=== PATIENT | male | born 1995 | race Hispanic/Latino ===

== ENCOUNTER 2018-09-01 15:55 | Emergency (ER) | payer BC ==
--- NOTE | 2018-09-01 16:33 | ER ---
Nurse's Notes [facility] Name: Jay Coyle Jr Age: 23 yrs Sex: Male : 1995 Arrival Date: 09/01/2018 Time: 15:57 Bed Treatment Private MD: Diagnosis: Asthma;Bronchitis, not specified as acute or chronic Presentation: 09/01 16:12 Presenting complaint: Malaise, nonproductive cough, sinus congestion, and mild SOB x 1 hb week. Denies fever/pain/N/V. Transition of care: patient was not received from another setting of care. Onset of symptoms was August 25, 2018. Risk Assessment: Do you want to hurt yourself or someone else? Patient reports no desire to harm self or others. Care prior to arrival: None. 16:12 Method Of Arrival: Ambulatory hb 16:12 Acuity: NATASHA 4 hb 16:30 Initial Sepsis Screen: Does the patient meet any 2 criteria? No. Patient's initial mg2 sepsis screen is negative. Does the patient have a suspected source of infection? No. Patient's initial sepsis screen is negative. Historical: - Allergies: 16:13 No Known Allergies; hb - Home Meds: 16:13 None [Active]; hb - PMHx: 16:13 None; hb - PSHx: 16:13 None; hb - Immunization history:: Adult Immunizations up to date. - Social history:: Smoking status: Patient/guardian denies using tobacco. - Ebola Screening: : No symptoms or risks identified at this time. Screenin:29 Abuse screen: Denies threats or abuse. Denies injuries from another. Nutritional mg2 screening: No deficits noted. Tuberculosis screening: No symptoms or risk factors identified. Fall Risk None identified. Assessment: 16:28 General: Appears in no apparent distress. comfortable, Behavior is calm, cooperative. mg2 Pain: Denies pain. Neuro: Level of Consciousness is awake, alert, obeys commands, Oriented to person, place, time, situation. Cardiovascular: Capillary refill < 3 seconds Patient's skin is warm and dry. Respiratory: Reports cough that is productive, persistent since 1 week ago Airway is patent Respiratory effort is even, unlabored, Respiratory pattern is regular, symmetrical, Breath sounds are clear bilaterally. in right upper lobe, left upper lobe, left posterior upper lobe, right posterior upper lobe, left posterior lower lobe, right posterior middle lobe and right posterior lower lobe. GI: No signs and/or symptoms were reported involving the gastrointestinal system. : No signs and/or symptoms were reported regarding the genitourinary system. EENT: Throat is clear. Derm: Skin is intact, is healthy with good turgor, Skin is pink, warm \T\ dry. normal. Musculoskeletal: Circulation, motion, and sensation intact. Capillary refill < 3 seconds. 16:53 Reassessment: patient for discharge after the nebulzation. mg2 Vital Signs: 16:13 BP 130 / 77; Pulse 88; Resp 16; Temp 98.1; Pulse Ox 100% on R/A; Weight 102.06 kg; hb Height 6 ft. 1 in. (185.42 cm); Pain 0/10; 17:00 BP 125 / 78; Pulse 90; Resp 18; Pulse Ox 100% on R/A; Pain 0/10; mg2 16:13 Body Mass Index 29.68 (102.06 kg, 185.42 cm) hb ED Course: 15:57 Patient arrived in ED. as 16:12 Triage completed. hb 16:13 Arm band placed on left wrist. hb 16:19 Laura Gale, RN is Primary Nurse. aa5 16:21 Veronica Green FNP-C is PHCP. snw 16:21 Alexander Batres MD is Attending Physician. snw 16:29 No provider procedures requiring assistance completed. Patient did not have IV access mg2 during this emergency room visit. 16:30 Patient has correct armband on for positive identification. mg2 Administered Medications: 16:53 Drug: predniSONE 40 mg Route: PO; mg2 17:08 Follow up: Response: No adverse reaction; Medication administered at discharge. mg2 16:53 Drug: Pepcid 20 mg Route: PO; mg2 17:08 Follow up: Response: No adverse reaction; Medication administered at discharge. mg2 16:53 Drug: Albuterol 2.5 mg Route: Inhalation; mg2 17:08 Follow up: Response: No adverse reaction; Medication administered at discharge. mg2 Outcome: 16:33 Discharge ordered by . snw 17:08 Discharged to home ambulatory, with family. mg2 17:08 Condition: stable 17:08 Discharge instructions given to patient, family, Instructed on discharge instructions, follow up and referral plans. medication usage, Demonstrated understanding of instructions, follow-up care, medications, Prescriptions given X 2. 17:09 Patient left the ED. mg2 Signatures: Veronica Green, PEOPLESOFT PROGRAMMER-C PEOPLESOFT PROGRAMMER-Edelmira Presley Audri, RN RN aa5 Josette Demarco, FLO RN Dell Bland RN RN mg2
--- NOTE | 2018-09-01 16:33 | EDPHYS ---
Physician Documentation [facility] Name: Jay Coyle Jr Age: 23 yrs Sex: Male : 1995 Arrival Date: 09/01/2018 Time: 15:57 Bed Treatment Private MD: ED Physician Alexander Batres HPI: 09/01 16:36 This 23 yrs old Male presents to ER via Ambulatory with complaints of Cough. snw 16:36 The patient or guardian reports cough, described as moderate. Onset: The snw symptoms/episode began/occurred gradually, 1 week(s) ago, and became persistent. Severity of symptoms: At their worst the symptoms were moderate. Associated signs and symptoms: The patient has no apparent associated signs or symptoms. It is unknown whether or not the patient has had similar symptoms in the past. The patient has not recently seen a physician. childhood hx of asthma. Historical: - Allergies: 16:13 No Known Allergies; hb - Home Meds: 16:13 None [Active]; hb - PMHx: 16:13 None; hb - PSHx: 16:13 None; hb - Immunization history:: Adult Immunizations up to date. - Social history:: Smoking status: Patient/guardian denies using tobacco. - Ebola Screening: : No symptoms or risks identified at this time. ROS: 16:35 Eyes: Negative for injury, pain, redness, and discharge, ENT: Negative for injury, snw pain, and discharge, Neck: Negative for injury, pain, and swelling, Cardiovascular: Negative for chest pain, palpitations, and edema, Abdomen/GI: Negative for abdominal pain, nausea, vomiting, diarrhea, and constipation, Back: Negative for injury and pain, : Negative for injury, bleeding, discharge, and swelling, MS/Extremity: Negative for injury and deformity, Skin: Negative for injury, rash, and discoloration, Neuro: Negative for headache, weakness, numbness, tingling, and seizure, Psych: Negative for depression, anxiety, suicide ideation, homicidal ideation, and hallucinations. 16:35 Constitutional: Positive for cough, unable to sleep secondary to cough. 16:35 Respiratory: Positive for cough, wheezing. Exam: 16:34 Constitutional: This is a well developed, well nourished patient who is awake, alert, snw and in no acute distress. Head/Face: Normocephalic, atraumatic. Eyes: Pupils equal round and reactive to light, extra-ocular motions intact. Lids and lashes normal. Conjunctiva and sclera are non-icteric and not injected. Cornea within normal limits. Periorbital areas with no swelling, redness, or edema. ENT: Nares patent. No nasal discharge, no septal abnormalities noted. Tympanic membranes are normal and external auditory canals are clear. Oropharynx with no redness, swelling, or masses, exudates, or evidence of obstruction, uvula midline. Mucous membranes moist. Neck: Trachea midline, no thyromegaly or masses palpated, and no cervical lymphadenopathy. Supple, full range of motion without nuchal rigidity, or vertebral point tenderness. No Meningismus. Chest/axilla: Normal chest wall appearance and motion. Nontender with no deformity. No lesions are appreciated. Cardiovascular: Regular rate and rhythm with a normal S1 and S2. No gallops, murmurs, or rubs. Normal PMI, no JVD. No pulse deficits. 16:34 Abdomen/GI: Soft, non-tender, with normal bowel sounds. No distension or tympany. No guarding or rebound. No evidence of tenderness throughout. Back: No spinal tenderness. No costovertebral tenderness. Full range of motion. Skin: Warm, dry with normal turgor. Normal color with no rashes, no lesions, and no evidence of cellulitis. MS/ Extremity: Pulses equal, no cyanosis. Neurovascular intact. Full, normal range of motion. Neuro: Awake and alert, GCS 15, oriented to person, place, time, and situation. Cranial nerves II-XII grossly intact. Motor strength 5/5 in all extremities. Sensory grossly intact. Cerebellar exam normal. Normal gait. Psych: Awake, alert, with orientation to person, place and time. Behavior, mood, and affect are within normal limits. 16:34 Respiratory: the patient does not display signs of respiratory distress, Respirations: normal, Breath sounds: wheezing: that is mild, is heard diffusely, on end respiration, Bronchitic cough. Vital Signs: 16:13 BP 130 / 77; Pulse 88; Resp 16; Temp 98.1; Pulse Ox 100% on R/A; Weight 102.06 kg; hb Height 6 ft. 1 in. (185.42 cm); Pain 0/10; 17:00 BP 125 / 78; Pulse 90; Resp 18; Pulse Ox 100% on R/A; Pain 0/10; mg2 16:13 Body Mass Index 29.68 (102.06 kg, 185.42 cm) hb MDM: 16:27 Patient medically screened. snw 16:35 Data reviewed: vital signs, nurses notes. Data interpreted: Pulse oximetry: on room air snw is 100 %. Interpretation: normal. Counseling: I had a detailed discussion with the patient and/or guardian regarding: the historical points, exam findings, and any diagnostic results supporting the discharge/admit diagnosis, the need for outpatient follow up, to return to the emergency department if symptoms worsen or persist or if there are any questions or concerns that arise at home. Special discussion: Based on the history and exam findings, there is no indication for further emergent testing or inpatient evaluation. I discussed with the patient/guardian the need to see the primary care provider for further evaluation of the symptoms. Administered Medications: 16:53 Drug: predniSONE 40 mg Route: PO; mg2 17:08 Follow up: Response: No adverse reaction; Medication administered at discharge. mg2 16:53 Drug: Pepcid 20 mg Route: PO; mg2 17:08 Follow up: Response: No adverse reaction; Medication administered at discharge. mg2 16:53 Drug: Albuterol 2.5 mg Route: Inhalation; mg2 17:08 Follow up: Response: No adverse reaction; Medication administered at discharge. mg2 Disposition: 18:03 Co-signature as Attending Physician, Alexander Batres MD. rn Disposition: 09/01/18 16:33 Discharged to Home. Impression: Asthma, Bronchitis, not specified as acute or chronic. - Condition is Stable. - Discharge Instructions: Acute Bronchitis, Adult, Fever, Adult, How to Use an Inhaler, Upper Respiratory Infection, Adult, Cool Mist Vaporizer, Cough, Adult, Rehydration, Adult. - Prescriptions for Prednisone 20 mg Oral Tablet - take 2 tablet by ORAL route once daily for 5 days; 10 tablet. Albuterol Sulfate 90 mcg/actuation - inhale 1-2 puff by INHALATION route every 4-6 hours; 1 Inhaler. - Work release form, Medication Reconciliation Form, Thank You Letter, Antibiotic Education, Prescription Opioid Use form. - Follow up: Private Physician; When: 2 - 3 days; Reason: Recheck today's complaints, Continuance of care, Re-evaluation by your physician. Follow up: Emergency Department; When: As needed; Reason: Worsening of condition. Signatures: Veronica Green, LICENSED NURSING ASSISTANT-C LICENSED NURSING ASSISTANT-Csnw Alexander Batres MD MD rn Baxter, Heather, RN RN Dell Bland RN RN mg2 Corrections: (The following items were deleted from the chart) 16:33 16:33 09/01/2018 16:33 Discharged to Home. Impression: Asthma. Condition is Stable. snw Forms are Medication Reconciliation Form, Thank You Letter, Antibiotic Education, Prescription Opioid Use. Follow up: Private Physician; When: 2 - 3 days; Reason: Recheck today's complaints, Continuance of care, Re-evaluation by your physician. Follow up: Emergency Department; When: As needed; Reason: Worsening of condition. snw 17:09 16:33 09/01/2018 16:33 Discharged to Home. Impression: Asthma; Bronchitis, not mg2 specified as acute or chronic. Condition is Stable. Forms are Medication Reconciliation Form, Thank You Letter, Antibiotic Education, Prescription Opioid Use. Follow up: Private Physician; When: 2 - 3 days; Reason: Recheck today's complaints, Continuance of care, Re-evaluation by your physician. Follow up: Emergency Department; When: As needed; Reason: Worsening of condition. snw
[2018-09-01] MEDS ORDERED: ALBUTEROL 2.5 MG/3 ML NEB SOL ONE (16:54)
[2018-09-01] MEDS ORDERED: predniSONE 20 MG TAB ONE (16:55)
[2018-09-01] MEDS ORDERED: FAMOTIDINE 20 MG TAB ONE (16:55)
== END 2018-09-01 17:09 | disposition home or self-care (01) ==
LOC: ER 15:55
DX: J40 Bronchitis, not specified as acute or chronic (principal); J45.909 Unspecified asthma, uncomplicated
CPT/HCPCS: 99284; J7512

== ENCOUNTER 2018-11-09 15:40 | Emergency (ER) | payer BC ==
--- NOTE | 2018-11-09 16:10 | EDPHYS ---
Physician Documentation [facility] Name: Jay Coyle Jr Age: 23 yrs Sex: Male : 1995 Arrival Date: 11/09/2018 Time: 15:48 Bed 4 Private MD: ED Physician Jessica Garibay HPI: 11/09 16:07 This 23 yrs old Male presents to ER via Ambulatory with complaints of Suture ma2 Removal. 16:07 The patient has sutures on the right leg. Previous treatment: The patient was initially ma2 treated 9 days. Sutures/beatriz progress: The patient has no c/o's. The wound is well-healing with no redness, swelling, discharge, or dehiscence reported. The patient has not experienced similar symptoms in the past. Historical: - Allergies: 15:54 No Known Allergies; aa5 - PMHx: 15:54 None; aa5 - PSHx: 15:54 None; aa5 - Immunization history:: Last tetanus immunization: up to date Flu vaccine is not up to date. - Social history:: Smoking status: Patient/guardian denies using tobacco, Patient/guardian denies using alcohol, street drugs, The patient lives with family. - Ebola Screening: : No symptoms or risks identified at this time. - Family history:: not pertinent. ROS: 16:07 Constitutional: Negative for fever, chills, and weight loss, Cardiovascular: Negative ma2 for chest pain, palpitations, and edema, Respiratory: Negative for shortness of breath, cough, wheezing, and pleuritic chest pain, Abdomen/GI: Negative for abdominal pain, nausea, diarrhea, and constipation. 16:07 Psych: Negative for depression, anxiety, suicide ideation, homicidal ideation, and hallucinations, Allergy/Immunology: Negative for hives, rash, and allergies. 16:07 MS/extremity: Positive for laceration of right knee well healed dry in good order. Exam: 16:07 Constitutional: This is a well developed, well nourished patient who is awake, alert, ma2 and in no acute distress. Chest/axilla: Normal chest wall appearance and motion. Nontender with no deformity. No lesions are appreciated. Cardiovascular: Regular rate and rhythm with a normal S1 and S2. No gallops, murmurs, or rubs. Normal PMI, no JVD. No pulse deficits. Abdomen/GI: Soft, non-tender, with normal bowel sounds. No distension or tympany. No guarding or rebound. No evidence of tenderness throughout. MS/ Extremity: Pulses equal, no cyanosis. Neurovascular intact. Full, normal range of motion. 16:07 Skin: laceration well healed in good order, dry . Vital Signs: 15:54 BP 131 / 80; Pulse 77; Resp 16 S; Temp 98.0(TE); Pulse Ox 98% on R/A; Weight 104.33 kg aa5 (R); Height 6 ft. 0 in. (182.88 cm) (R); 15:54 Body Mass Index 31.19 (104.33 kg, 182.88 cm) aa5 Procedures: 16:07 sutures removed . ma2 MDM: 16:00 Patient medically screened. ma2 16:07 Data reviewed: vital signs, nurses notes. Counseling: I had a detailed discussion with ma the patient and/or guardian regarding: the historical points, exam findings, and any diagnostic results supporting the discharge/admit diagnosis, the presence of at least one elevated blood pressure reading (>120/80) during this emergency department visit, the need for outpatient follow up. Administered Medications: No medications were administered Disposition: 11/09/18 16:09 Discharged to Home. Impression: Encounter for removal of sutures. - Condition is Stable. - Discharge Instructions: Suture Removal, Care After. - Work release form, Medication Reconciliation Form, Thank You Letter, Antibiotic Education, Prescription Opioid Use form. - Follow up: Private Physician; When: Tomorrow; Reason: Continuance of care. Signatures: Laura Gale RN RN aa5 Anival Murphy RN RN Jessica Garibay MD MD ma2 Corrections: (The following items were deleted from the chart) 16:12 16:09 11/09/2018 16:09 Discharged to Home. Impression: Encounter for removal of hj sutures. Condition is Stable. Forms are Work release form, Medication Reconciliation Form, Thank You Letter, Antibiotic Education, Prescription Opioid Use. Follow up: Private Physician; When: Tomorrow; Reason: Continuance of care. ma2
--- NOTE | 2018-11-09 16:10 | ER ---
Nurse's Notes [facility] Name: Jay Coyle Jr Age: 23 yrs Sex: Male : 1995 Arrival Date: 11/09/2018 Time: 15:48 Bed 4 Private MD: Diagnosis: Encounter for removal of sutures Presentation: 11/09 15:53 Presenting complaint: Patient states: need for suture removal. Pt reports sutures to aa5 right leg were placed on october 31 in [place], [place]. Transition of care: patient was not received from another setting of care. Onset of symptoms was November 09, 2018. Risk Assessment: Do you want to hurt yourself or someone else? Patient reports no desire to harm self or others. Initial Sepsis Screen: Does the patient meet any 2 criteria? No. Patient's initial sepsis screen is negative. Does the patient have a suspected source of infection? No. Patient's initial sepsis screen is negative. Care prior to arrival: None. 15:53 Method Of Arrival: Ambulatory aa5 15:53 Acuity: NATASHA 4 aa5 Triage Assessment: 16:00 General: Appears in no apparent distress. uncomfortable, Behavior is calm, cooperative, hj appropriate for age. Pain: Denies pain. Historical: - Allergies: 15:54 No Known Allergies; aa5 - PMHx: 15:54 None; aa5 - PSHx: 15:54 None; aa5 - Immunization history:: Last tetanus immunization: up to date Flu vaccine is not up to date. - Social history:: Smoking status: Patient/guardian denies using tobacco, Patient/guardian denies using alcohol, street drugs, The patient lives with family. - Ebola Screening: : No symptoms or risks identified at this time. - Family history:: not pertinent. Screenin:00 Abuse screen: Denies threats or abuse. Denies injuries from another. Nutritional hj screening: No deficits noted. Tuberculosis screening: No symptoms or risk factors identified. Fall Risk None identified. Assessment: 16:00 General: Appears in no apparent distress. comfortable, Behavior is calm, cooperative, hj appropriate for age. Pain: Denies pain. Derm: Reports removal of suture placed 8 days ago;. Vital Signs: 15:54 BP 131 / 80; Pulse 77; Resp 16 S; Temp 98.0(TE); Pulse Ox 98% on R/A; Weight 104.33 kg aa5 (R); Height 6 ft. 0 in. (182.88 cm) (R); 15:54 Body Mass Index 31.19 (104.33 kg, 182.88 cm) aa ED Course: 15:48 Patient arrived in ED. as 15:52 Arm band placed on. aa5 15:53 Triage completed. aa5 15:55 Anival Murphy, RN is Primary Nurse. 16:00 Jessica Garibay MD is Attending Physician. ma2 16:00 Patient has correct armband on for positive identification. Placed in gown. Bed in low hj position. Call light in reach. Side rails up X 1. Adult w/ patient. 16:11 No provider procedures requiring assistance completed. Patient did not have IV access hj during this emergency room visit. Administered Medications: No medications were administered Outcome: 16:09 Discharge ordered by . ma2 16:12 Discharged to home ambulatory, with family. hj 16:12 Condition: stable 16:12 Discharge instructions given to patient, Instructed on discharge instructions, follow up and referral plans. Demonstrated understanding of instructions, follow-up care. 16:12 Patient left the ED. hj Signatures: Edelmira Fowler Audri, RN RN [facility] Anival Murphy RN RN Jessica Garibay MD MD [facility]
== END 2018-11-09 16:12 | disposition home or self-care (01) ==
LOC: ER 15:40
DX: Z48.02 Encounter for removal of sutures (principal)
CPT/HCPCS: 99281

== ENCOUNTER 2019-03-01 08:05 | Emergency (ER) | payer BC ==
[2019-03-01] MEDS ORDERED: KETOROLAC 30 MG/ML INJ ONE (08:30)
--- NOTE | 2019-03-01 08:58 | ER ---
Nurse's Notes [facility] Name: Jay Coyle Jr Age: 23 yrs Sex: Male : 1995 Arrival Date: 03/01/2019 Time: 08:09 Bed 13 Private MD: Diagnosis: Strain of muscle, fascia and tendon of lower back Presentation: 03/01 08:18 Presenting complaint: Patient states: L low back pain that began this morning. Patient ss reports he moved a certain way yesterday and felt a pulling sensation in his back. Transition of care: patient was not received from another setting of care. Onset of symptoms was February 28, 2019. Risk Assessment: Do you want to hurt yourself or someone else? Patient reports no desire to harm self or others. Initial Sepsis Screen: Does the patient meet any 2 criteria? No. Patient's initial sepsis screen is negative. Does the patient have a suspected source of infection? No. Patient's initial sepsis screen is negative. Care prior to arrival: None. 08:18 Acuity: NATASHA 4 ss 08:18 Method Of Arrival: Ambulatory ss Historical: - Allergies: 08:21 No Known Allergies; ss - Home Meds: 08:21 None [Active]; ss - PMHx: 08:21 None; ss - PSHx: 08:21 None; ss - Immunization history:: Adult Immunizations up to date. - Social history:: Smoking status: Patient uses tobacco products, smokes one-half pack cigarettes per day. - Ebola Screening: : Patient denies exposure to infectious person Patient denies travel to an Ebola-affected area in the 21 days before illness onset. - Family history:: not pertinent. - Hospitalizations: : No recent hospitalization is reported. Screenin:55 Abuse screen: Denies threats or abuse. Nutritional screening: No deficits noted. la1 Tuberculosis screening: No symptoms or risk factors identified. Fall Risk None identified. Assessment: 08:55 General: Appears in no apparent distress. Behavior is calm, cooperative. Pain: la1 Complains of pain in back. Neuro: Level of Consciousness is awake, alert, obeys commands, Oriented to person, place, time, situation. Cardiovascular: Capillary refill < 3 seconds Patient's skin is warm and dry. Respiratory: Airway is patent Respiratory effort is even, unlabored. GI: No signs and/or symptoms were reported involving the gastrointestinal system. : No signs and/or symptoms were reported regarding the genitourinary system. Musculoskeletal: Circulation, motion, and sensation intact. Capillary refill < 3 seconds, is brisk, in bilateral toes. Range of motion: intact in all extremities. Vital Signs: 08:17 BP 133 / 82; Pulse 79; Resp 14; Temp 97.8(TE); Pulse Ox 99% on R/A; Weight 104.33 kg; ss Height 6 ft. 1 in. (185.42 cm); Pain 7/10; 08:17 Body Mass Index 30.34 (104.33 kg, 185.42 cm) ED Course: 08:09 Patient arrived in ED. mr 08:13 Alexander Batres MD is Attending Physician. rn 08:17 Arm band placed on right wrist. ss 08:20 Triage completed. ss 08:28 Alex Johnson, FLO is Primary Nurse. la1 08:57 Patient has correct armband on for positive identification. la1 08:57 No provider procedures requiring assistance completed. Patient did not have IV access la1 during this emergency room visit. Administered Medications: 08:33 Drug: TORadol 30 mg Route: IM; Site: left gluteus; la1 09:09 Follow up: Response: No adverse reaction la1 Outcome: 08:57 Discharge ordered by . rn 09:09 Discharged to home ambulatory. la1 09:09 Condition: stable 09:09 Discharge instructions given to patient, Instructed on discharge instructions, follow up and referral plans. medication usage, Demonstrated understanding of instructions, follow-up care, medications, Prescriptions given X 2. 09:09 Patient left the ED. la1 Signatures: Olimpia Jenkins mr Alexander Batres MD MD rn Smirch, Shelby, RN RN Alex Johnson RN RN la1
--- NOTE | 2019-03-01 08:59 | EDPHYS ---
Physician Documentation [facility] Name: Jay Coyle Jr Age: 23 yrs Sex: Male : 1995 Arrival Date: 03/01/2019 Time: 08:09 Bed 13 Private MD: ED Physician Alexander Batres HPI: 03/01 08:47 This 23 yrs old Male presents to ER via Ambulatory with complaints of Back rn Pain. 08:47 The patient presents with pain that is acute. The symptoms are located in the low back. rn Onset: The symptoms/episode began/occurred yesterday. The pain does not radiate. Associated signs and symptoms: The patient has no apparent associated signs or symptoms, Pertinent negatives: abdominal pain, constipation, dysuria, hematuria, incontinence, nausea, numbness, tingling, urinary retention, vomiting, weakness. Modifying factors: The patient symptoms are alleviated by nothing, the patient symptoms are aggravated by any movement. Severity of symptoms: At their worst the symptoms were moderate. The patient has experienced similar episodes in the past. The patient has not recently seen a physician. Reports left lower back pain, began yesterday after jumping and doing tricks on skateboard, didn't hurt immediately or last night, woke up today with back pain. NO bowel/bladder issues. No weakness. No bony pain. Ambulatory and drove himself here. . Historical: - Allergies: 08:21 No Known Allergies; ss - Home Meds: 08:21 None [Active]; ss - PMHx: 08:21 None; ss - PSHx: 08:21 None; ss - Immunization history:: Adult Immunizations up to date. - Social history:: Smoking status: Patient uses tobacco products, smokes one-half pack cigarettes per day. - Ebola Screening: : Patient denies exposure to infectious person Patient denies travel to an Ebola-affected area in the 21 days before illness onset. - Family history:: not pertinent. - Hospitalizations: : No recent hospitalization is reported. ROS: 08:47 Constitutional: Negative for fever, chills, and weight loss, Cardiovascular: Negative rn for chest pain, palpitations, and edema, Respiratory: Negative for shortness of breath, cough, wheezing, and pleuritic chest pain, Abdomen/GI: Negative for abdominal pain, nausea, vomiting, diarrhea, and constipation, Back: + pain : Negative for injury, bleeding, discharge, and swelling, MS/Extremity: Negative for injury and deformity, Skin: Negative for injury, rash, and discoloration, Neuro: Negative for headache, weakness, numbness, tingling, and seizure. Exam: 08:47 Constitutional: This is a well developed, well nourished patient who is awake, alert, rn and in no acute distress. Back: No spinal tenderness. No costovertebral tenderness. Full range of motion. Vital Signs: 08:17 BP 133 / 82; Pulse 79; Resp 14; Temp 97.8(TE); Pulse Ox 99% on R/A; Weight 104.33 kg; ss Height 6 ft. 1 in. (185.42 cm); Pain 7/10; 08:17 Body Mass Index 30.34 (104.33 kg, 185.42 cm) ss MDM: 08:14 Patient medically screened. rn 08:56 Differential diagnosis: sprain, muscle spasm. Data reviewed: vital signs, nurses notes, rn and as a result, I will discharge patient. Counseling: I had a detailed discussion with the patient and/or guardian regarding: the historical points, exam findings, and any diagnostic results supporting the discharge/admit diagnosis, the need for outpatient follow up, to return to the emergency department if symptoms worsen or persist or if there are any questions or concerns that arise at home. Response to treatment: the patient's symptoms have mildly improved after treatment, and as a result, I will discharge patient. Special discussion: I discussed with the patient/guardian in detail that at this point there is no indication for admission to the hospital. It is understood, however, that if the symptoms persist or worsen the patient needs to return immediately for re-evaluation. Administered Medications: 08:33 Drug: TORadol 30 mg Route: IM; Site: left gluteus; la1 09:09 Follow up: Response: No adverse reaction la1 Disposition: 03/01/19 08:57 Discharged to Home. Impression: Strain of muscle, fascia and tendon of lower back. - Condition is Stable. - Discharge Instructions: Back Pain, Adult, Muscle Cramps and Spasms, Muscle Strain. - Prescriptions for Cyclobenzaprine 10 mg Oral Tablet - take 1 tablet by ORAL route every 8 hours As needed; 20 tablet. Medrol ([place]) 4 mg Oral Tablets, Dose Pack - take 1 tablet by ORAL route as directed - follow package instructions; 1 packet. - Medication Reconciliation Form, Thank You Letter, Antibiotic Education, Prescription Opioid Use, Work release form form. - Follow up: Private Physician; When: As needed; Reason: Recheck today's complaints, Re-evaluation by your physician. - Problem is new. - Symptoms have improved. Signatures: Alexander Batres MD MD rn Smirch, Shelby, RN RN Alex Johnson RN RN la1 Corrections: (The following items were deleted from the chart) 09: 08:57 03/01/2019 08:57 Discharged to Home. Impression: Strain of muscle, fascia and la1 tendon of lower back. Condition is Stable. Forms are Medication Reconciliation Form, Thank You Letter, Antibiotic Education, Prescription Opioid Use. Follow up: Private Physician; When: As needed; Reason: Recheck today's complaints, Re-evaluation by your physician. Problem is new. Symptoms have improved. rn
[2019-03-01 15:12] VITALS: BP 133/82; TEMP 97.8; O2SAT 99
== END 2019-03-01 09:09 | disposition home or self-care (01) ==
LOC: ER 08:05
DX: S39.012A Strain of muscle, fascia and tendon of lower back, initial encounter (principal); Y93.51 Activity, roller skating (inline) and skateboarding; Y92.9 Unspecified place or not applicable; F17.210 Nicotine dependence, cigarettes, uncomplicated
CPT/HCPCS: 96372; 99283